=== PATIENT | male | born 1965 | race Asian ===

== ENCOUNTER → 2021-01-05 08:49 | Outpatient (BNVA) | payer BC, SELFPAY | PROVIDERS: PCP Internal Medicine; Visit Provider Urology | DX: N40.1 Benign prostatic hyperplasia with lower urinary tract symptoms (principal); R97.20 Elevated prostate specific antigen [PSA] | CPT/HCPCS: 51798 ==

== ENCOUNTER 2022-01-14 10:59 | Outpatient (REF) | payer OTHER, SELFPAY ==
[2022-01-14 14:30] LABS: Prostate Specific Antigen 2.87 ng/mL (<0.05-4.0)
== END 2022-01-14 11:00 | disposition home or self-care (01) ==
LOC: HO.10HDL 10:59
PROVIDERS: Visit Provider Urology
DX: Z12.5 Encounter for screening for malignant neoplasm of prostate (principal); N13.8 Other obstructive and reflux uropathy; N40.1 Benign prostatic hyperplasia with lower urinary tract symptoms; R97.20 Elevated prostate specific antigen [PSA]
CPT/HCPCS: 36415; 84153

== ENCOUNTER 2023-05-06 09:05 | Outpatient (AMB) | payer OTHER, SELFPAY ==
--- NOTE | 2023-05-06 09:22 | MHC.OFFVIS ---
Intake Intake Visit Reasons: 1Y PSA(set) Intake Note: Patient presents today for a 1 year follow-up on BPH/PSA: Meds- None Allergies to Antibiotic- No Known Allergies Blood Thinner- None PVR- 11 mL Finisher Cold Rolling Required: No Accompanied by: Self / Same As Patient Allergies lisinopril Allergy (Unknown, Verified 05/06/23 09:26) Unknown Medication List - Last Reconciled 05/06/23 by Sunil Henry MD amlodipine 5 mg PO DAILY atenolol 25 mg PO DAILY finasteride 5 mg PO DAILY 90 days losartan 100 mg PO DAILY HPI HPI Comments History of Present Illness Details Cesar FLETCHER is a very pleasant Chinese male. He is a patient of Dr Cruz. He is seen for the following urologic conditions. - elevated PSA - BPH PSA well controlled 2.5 Good voiding parameters with effective storage, strong stream, good emptying Six month follow-up PSA Elevated PSA/Abnormal LEONCIO: He presents for further evaluation of elevated PSA - on finasteride Current management is 07/13 , medication with 5AR. Laboratory investigations include a total PSA evaluation 05/13 5.8 - 06/16 2.5, 01/16 2.9, 02/16 2.5 Imaging investigations include a transrectal ultrasound Yes Date 06/2017 Prostate Volume 50 Indiviudalized Prostate Cancer Risk Calculator 5-10% high risk, , Discussed use of 5AR to help differentiate prostate cancer from benign disease. He would like to try this and understands the small risk associated with a delay in diagnosis. A TRUS biopsy has been performed and is negative 07/13 PSA at biopsy 5.8 Symptoms include 01/12 , weak stream, and are stable. Overall symptoms are mild. Therapeutic plan will be continued surveillance - 5AR [facility] Medical History Allergic rhinitis Borderline diabetes Poor urinary stream Surgical History History of surgery Family History (Updated 05/06/23 @ 09:26 by YODIT Brenner) Father No problems noted. Mother No problems noted. Social History (Updated 05/06/23 @ 09:26 by YODIT Brenner) Alcohol intake: current Alcohol intake frequency: does not drink Patient Tobacco Use Status: Never used Tobacco Review of Systems Const Denies chills and Denies fever(s) Card Reports no additional complaints and Denies syncope Resp Denies cough GI Denies abdominal pain and Denies heartburn Reports as per HPI and Denies change in libido Neuro Denies syncope Psych Denies change in libido Endo Denies change in libido Physical Exam Const General: cooperative, healthy appearing, comfortable and no acute distress Orientation/consciousness: patient oriented x3 HEENT Face and sinus: Yes normal facial exam Mouth: moist mucous membranes Neck Neck: Yes normal visual inspection, Yes full ROM and Yes trachea midline Chest Chest palpation & inspection: normal inspection of the chest Resp Effort & Inspection: normal respiratory effort, able to speak in complete sentences and no respiratory distress GI Inspection: Yes normal to inspection Back/Spine/Pelvis Cervical Spine: normal cervical lordosis Thoracic/Lumbar Spine: thoracic and lumbar spine normal to inspection Skin General skin exam: no rashes or lesions noted Neuro General: patient oriented x3, gait normal, tone normal and moves all extremities Extrem General: Yes normal to inspection and Yes capillary refill normal Results AMB Urinalysis, Automated UA Leukoctes 0 Autumn/uL Last Edit by YODIT Brenner on 05/06/23 09:31 UA Nitrite Negative Last Edit by YODIT Brenner on 05/06/23 09:31 UA Urobilinogen 0.2 mg/dL Last Edit by YODIT Brenner on 05/06/23 09:31 UA Protein 0 mg/dL Last Edit by YODIT Brenner on 05/06/23 09:31 UA pH 5.5 Last Edit by YODIT Brenner on 05/06/23 09:31 UA Blood 0 Matt/uL Last Edit by YODIT Brenner on 05/06/23 09:31 UA Specific [place] 1.030 Last Edit by YODIT Brenner on 05/06/23 09:31 UA Ketone Positive Last Edit by YODIT Brenner on 05/06/23 09:31 UA Bilirubin 0 mg/dL Last Edit by YODIT Brenner on 05/06/23 09:31 UA Glucose 0 mg/dL Last Edit by YODIT Brenner on 05/06/23 09:31 Results Reviewed Results Reviewed: Laboratory Last Values Urine pH (Auto) 5.5 05/06/23 09:25 Specific [place] (Auto) 1.030 05/06/23 09:25 Urine Protein (Auto) 0 mg/dL 05/06/23 09:25 Glucose (UA)(Auto) 0 mg/dL 05/06/23 09:25 Urine Ketones (Auto) Positive 05/06/23 09:25 Urine Blood (Auto) 0 Matt/uL 05/06/23 09:25 Urine Nitrite (Auto) Negative 05/06/23 09:25 Urine Bilirubin (Auto) 0 mg/dL 05/06/23 09:25 Urine Urobilinogen (Auto) 0.2 mg/dL 05/06/23 09:25 Leukocyte Esterase (Auto) 0 Autumn/uL 05/06/23 09:25 Assessment & Plan Assessment & Plan (1) Elevated PSA: Code(s): R97.20 - Elevated prostate specific antigen [PSA] (2) Benign prostatic hyperplasia with lower urinary tract symptoms: Code(s): N40.1 - Benign prostatic hyperplasia with lower urinary tract symptoms Plan 6 month follow-up PSA Orders: Orders AMB Post Void Residual by ultrasound Today N39.8 - Other specified disorders of urinary system Prostate Specific Antigen 6 Months R97.20 - Elevated prostate specific antigen [PSA] AMB Urinalysis Automated Today Z13.9 - Encounter for screening, unspecified Patient Instructions: Imaging studies, laboratory and physical exam results were discussed and reviewed in detail. No major barriers to patient understanding were identified. An opportunity to ask questions regarding the treatment plan was provided. All questions were answered. The patient expressed understanding and agreement with the above treatment plan. The patient is aware they should contact our office by phone for worsening of their current condition or the appearance of new urologic symptoms. Compliance is encouraged with any medications and followup testing that is ordered. It is a privilege to participate in the urologic care of your patient. If you have any questions or concerns regarding treatment for the above conditions, or other urologic issues, please do not hesitate to contact me. The office telephone contact is [phone]. This note is constructed using voice recognition software. While every effort has been made to ensure accuracy vascular technician errors may have been included. Yours sincerely, Dr Sunil Henry MD, [facility] - Urology Providers of Expert, Compassionate Care for the Genitourinary System Coding Level of Care Code Est Pt Level 4 (75792) Diagnoses Elevated PSA R97.20 Benign prostatic hyperplasia with lower urinary tract symptoms N40.1
== END 2023-05-06 10:07 | disposition home or self-care (01) ==
PROVIDERS: PCP Internal Medicine; Visit Provider Urology
DX: R97.20 Elevated prostate specific antigen [PSA] (principal); N40.1 Benign prostatic hyperplasia with lower urinary tract symptoms; Z13.9 Encounter for screening, unspecified
CPT/HCPCS: 99213

== ENCOUNTER → 2023-05-06 09:05 | Outpatient (BNVA) | payer OTHER, SELFPAY | PROVIDERS: Visit Provider Urology | DX: R97.20 Elevated prostate specific antigen [PSA] (principal); N40.0 Benign prostatic hyperplasia without lower urinary tract symptoms | CPT/HCPCS: 51798; 81003 ==

== ENCOUNTER 2023-11-05 08:33 | Outpatient (AMB) | payer OTHER, SELFPAY ==
--- NOTE | 2023-11-05 08:34 | MHC.OFFVIS ---
Intake Intake Visit Reasons: 6M PSA(set)Vm confirm Intake Note: Patient presents today for a telehealth follow up on: PSA Meds- Finasteride Allergies to Antibiotic- No Known Allergies Blood Thinner- None Panel Sewer Required: No Allergies lisinopril Allergy (Unknown, Verified 11/05/23 08:35) Unknown Medication List - Last Reconciled 11/05/23 by Sunil Henry MD amlodipine 5 mg PO DAILY atenolol 25 mg PO DAILY finasteride 5 mg PO DAILY 90 days losartan 100 mg PO DAILY HPI HPI Comments History of Present Illness Details Cesar FLETCHER is a very pleasant [place] male. He is a patient of Dr Cruz. He is seen for the following urologic conditions. - elevated PSA - BPH Telemedicine Evaluation 15 min Consultation [employer] Hector Video attempted Slight PSA rise to 2.9 Good voiding parameters with effective storage, strong stream, good emptying, minimal nocturia Six month follow-up PSA Elevated PSA/Abnormal LEONCIO: He presents for further evaluation of elevated PSA - on finasteride Current management is 07/13 , medication with 5AR. Laboratory investigations include a total PSA evaluation 05/13 5.8 - 06/16 2.5, 01/16 2.9, 02/16 2.5, 3.24 2.9 Imaging investigations include a transrectal ultrasound Yes Date 06/2017 Prostate Volume 50 Indiviudalized Prostate Cancer Risk Calculator 5-10% high risk, , Discussed use of 5AR to help differentiate prostate cancer from benign disease. He would like to try this and understands the small risk associated with a delay in diagnosis. A TRUS biopsy has been performed and is negative 07/13 PSA at biopsy 5.8 Symptoms include 01/12 , weak stream, and are stable. Overall symptoms are mild. Therapeutic plan will be continued surveillance - 5AR [facility] Medical History Allergic rhinitis Borderline diabetes Poor urinary stream Benign prostatic hyperplasia with lower urinary tract symptoms Elevated PSA Surgical History History of surgery Family History Father No problems noted. Mother No problems noted. Social History Alcohol intake: current Alcohol intake frequency: does not drink Patient Tobacco Use Status: Never used Tobacco Review of Systems Const All systems reviewed & are unremarkable except as noted in HPI and below Reports no additional complaints Resp Reports no additional complaints GI Reports no additional complaints Reports as per HPI Musc Reports no additional complaints Physical Exam Telemedicine evaluation Appropriate responses Regular breathing rate and rhythm HEENT Head: Yes normal to inspection Ears: hearing grossly normal bilaterally Eyes General: appearance normal, both eyes and all related structures Neck Neck: Yes normal visual inspection Chest Chest palpation & inspection: normal inspection of the chest Resp Effort & Inspection: normal respiratory effort and able to speak in complete sentences Assessment & Plan Assessment & Plan (1) Benign prostatic hyperplasia with lower urinary tract symptoms: Code(s): N40.1 - Benign prostatic hyperplasia with lower urinary tract symptoms (2) Elevated PSA: Code(s): R97.20 - Elevated prostate specific antigen [PSA] Plan Continue PSA follow-up Orders: Orders Prostate Specific Antigen 6 Months R97.20 - Elevated prostate specific antigen [PSA] Patient Instructions: Imaging studies, laboratory and physical exam results were discussed and reviewed in detail. No major barriers to patient understanding were identified. An opportunity to ask questions regarding the treatment plan was provided. All questions were answered. The patient expressed understanding and agreement with the above treatment plan. The patient is aware they should contact our office by phone for worsening of their current condition or the appearance of new urologic symptoms. Compliance is encouraged with any medications and followup testing that is ordered. It is a privilege to participate in the urologic care of your patient. If you have any questions or concerns regarding treatment for the above conditions, or other urologic issues, please do not hesitate to contact me. The office telephone contact is [phone]. This note is constructed using voice recognition software. While every effort has been made to ensure accuracy special education inclusion teacher errors may have been included. Yours sincerely, Dr Sunil Henry MD, [facility] - Urology Providers of Expert, Compassionate Care for the Genitourinary System Telehealth Telehealth Location of provider rendering services: practice address Location of patient: address on file Patient Identification confirmed using: Name, : Yes Telehealth method: video Patient verbally consented to treatment: Yes Patient verbally consented to billing insurance company: Yes Patient informed of any privacy concerns related to visit: Yes Coding Level of Care Code Tele Est Pt Level 3 (13918) Diagnoses Benign prostatic hyperplasia with lower urinary tract symptoms N40.1 Elevated PSA R97.20
== END 2023-11-05 09:32 | disposition home or self-care (01) ==
LOC: HO.HUSH 08:33
PROVIDERS: PCP Internal Medicine; Visit Provider Urology
DX: N40.1 Benign prostatic hyperplasia with lower urinary tract symptoms (principal); R97.20 Elevated prostate specific antigen [PSA]
CPT/HCPCS: 99213

== ENCOUNTER → 2023-11-05 08:33 | Outpatient (BNVA) | payer OTHER, SELFPAY | PROVIDERS: PCP Internal Medicine; Visit Provider Urology ==

== ENCOUNTER 2024-05-05 08:33 | Outpatient (AMB) | payer OTHER, SELFPAY ==
--- NOTE | 2024-05-05 08:36 | MHC.OFFVIS ---
Intake Visit Reasons: 6M PSA(set) Intake Note: Patient is Present for Follow Up PSA Urology Medication: Finasteride Antibiotic Allergies: None Blood Thinners: None Recent PSA: 04/28/2024 PSA: 2.9 Patient states that he no current issues with Voiding Production Metal Sprayer Required: No Accompanied by: Self / Same As Patient Allergies lisinopril Allergy (Unknown, Verified 05/05/24 08:45) Unknown HPI Comments Details: Cesar FLETCHER is a very pleasant French male. He is a patient of Dr Cruz. He is seen for the following urologic conditions. - elevated PSA - BPH PSA remains stable 2.9 Good voiding parameters with effective storage, strong stream, good emptying, minimal nocturia Twelve month follow-up Elevated PSA/Abnormal LEONCIO: He presents for further evaluation of elevated PSA - on finasteride Current management is 07/13 , medication with 5AR. Laboratory investigations include a total PSA evaluation 05/13 5.8 - 06/16 2.5, 01/16 2.9, 02/16 2.5, 3.24, 05/20 2.9 Imaging investigations include a transrectal ultrasound Yes Date 06/2017 Prostate Volume 50 Indiviudalized Prostate Cancer Risk Calculator 5-10% high risk, , Discussed use of 5AR to help differentiate prostate cancer from benign disease. He would like to try this and understands the small risk associated with a delay in diagnosis. A TRUS biopsy has been performed and is negative 07/13 PSA at biopsy 5.8 Symptoms include 6/18 , weak stream, and are stable. Overall symptoms are mild. Therapeutic plan will be continued surveillance - 5AR [facility] Medical History Allergic rhinitis Borderline diabetes Poor urinary stream Benign prostatic hyperplasia with lower urinary tract symptoms Elevated PSA Surgical History History of surgery Family History Father No problems noted. Mother No problems noted. Social History Alcohol intake: current Alcohol intake frequency: does not drink Patient Tobacco Use Status: Never used Tobacco Review of Systems Const Denies chills and Denies fever(s) Card Reports no additional complaints and Denies syncope Resp Denies cough GI Denies abdominal pain and Denies heartburn Reports as per HPI and Denies change in libido Neuro Denies syncope Psych Denies change in libido Endo Denies change in libido Physical Exam Const General: cooperative, healthy appearing, comfortable and no acute distress Orientation/consciousness: patient oriented x3 HEENT Face and sinus: Yes normal facial exam Mouth: moist mucous membranes Neck Neck: Yes normal visual inspection, Yes full ROM and Yes trachea midline Chest Chest palpation & inspection: normal inspection of the chest Resp Effort & Inspection: normal respiratory effort, able to speak in complete sentences and no respiratory distress GI Inspection: Yes normal to inspection Back/Spine/Pelvis Cervical Spine: normal cervical lordosis Thoracic/Lumbar Spine: thoracic and lumbar spine normal to inspection Skin General skin exam: no rashes or lesions noted Neuro General: patient oriented x3, gait normal, tone normal and moves all extremities Extrem General: Yes normal to inspection and Yes capillary refill normal Assessment & Plan Assessment & Plan (1) Benign prostatic hyperplasia with lower urinary tract symptoms: Code(s): N40.1 - Benign prostatic hyperplasia with lower urinary tract symptoms Category: Medical (2) Elevated PSA: Code(s): R97.20 - Elevated prostate specific antigen [PSA] Category: Medical Plan Twelve month follow-up PSA Orders: Orders Prostate Specific Antigen 364 Days N40.1 - Benign prostatic hyperplasia with lower urinary tract symptoms Patient Instructions: Imaging studies, laboratory and physical exam results were discussed and reviewed in detail. No major barriers to patient understanding were identified. An opportunity to ask questions regarding the treatment plan was provided. All questions were answered. The patient expressed understanding and agreement with the above treatment plan. The patient is aware they should contact our office by phone for worsening of their current condition or the appearance of new urologic symptoms. Compliance is encouraged with any medications and followup testing that is ordered. It is a privilege to participate in the urologic care of your patient. If you have any questions or concerns regarding treatment for the above conditions, or other urologic issues, please do not hesitate to contact me. The office telephone contact is [phone]. This note is constructed using voice recognition software. While every effort has been made to ensure accuracy strategic solutions consultant errors may have been included. Yours sincerely, Dr Sunil Henry MD, [facility] - Urology Providers of Expert, Compassionate Care for the Genitourinary System Coding Level of Care Code Est Pt Level 3 (35492) Diagnoses Benign prostatic hyperplasia with lower urinary tract symptoms N40.1 Elevated PSA R97.20
== END 2024-05-05 09:03 | disposition home or self-care (01) ==
PROVIDERS: PCP Internal Medicine; Visit Provider Urology
DX: N40.1 Benign prostatic hyperplasia with lower urinary tract symptoms (principal); R97.20 Elevated prostate specific antigen [PSA]
CPT/HCPCS: 99213

== ENCOUNTER → 2024-05-05 08:33 | Outpatient (BNVA) | payer OTHER, SELFPAY | PROVIDERS: PCP Internal Medicine; Visit Provider Urology ==

== ENCOUNTER 2025-04-25 08:33 | Outpatient (REF) | payer BC, SELFPAY ==
--- OUTSIDE RECORDS SUMMARY | 2025-04-25 09:01 | XMS_ITS | Patient Health Record ---
Author Organization [facility] Address [address] [place] [address] Care Team Providers Care Unit Leader Name Role Phone ANABEL CHACON Primary Care Provider Allergies No Known Allergies Reason For Referral No Information Medications Medication SIG (Take, Route, Frequency, Duration) Notes Start Date End Date Status amLODIPine Besylate 5 MG 1 tablet Orally Once a day; Duration: 90 days Active Losartan Potassium 100 MG 1 tablet Orall y Once a day; Duration: 90 days Active Atenolol 25 MG 1 tablet Orally Once a day; Duration: 90 days Active Triamcinolone Acetonide 0.025 % 1 application Externally Once a day; Duration: 30 days Active Finasteride 5 MG 1 tablet Orally Once a day Active Immunizations Vaccine Route Administration Date Status Comme nts COVID Moderna Unknown 10/28/2020 Administered COVID Moderna Unknown 11/25/2020 Administered COVID Moderna Unknown 06/13/2021 Administered COVID-19 Moderna Unknown 08/27/2022 Administered Flu Shot Unknown 06/17/2023 Administered Tdap Unknown 09/22/2021 Administered Social History Tobacco Use: Social History Observation Description Date Details (start date - stop date) Current Smoker NA - NA Tobacco Use/Smoking Question Answer Notes Are you a current smoker How often do you smoke cigarettes? some days, bu t not every day How many cigarettes a day do you smoke? 5 or les s Are you interested in quitting? Thinking about q uitting Alcohol Screen (Audit-C) Question Answer Notes Did you have a drink contain ing alcohol in the past year? Yes How often did you have a dri nk containing alcohol in the past year? 4 or more times a week (4 points) How many drinks did you have on a typical day when you were drinking in the past year? 1 or 2 drinks (0 point) How often did you have 6 or more drinks on one occasion in the past year? Never (0 point) Points 4 Interpretation Positive Problems Problem Type SNOMED Code ICD Code Onset Dates Problem Status W/U Status Risk Notes Problem Alcohol dependence (91067235) Alcohol dependence, uncomplicated (F10.20) Active confirmed Problem Essential hypertension (39458237) Essential (primary) hypertension (I10) Active confirmed Problem Lower urinary tract symptoms due to benign prostatic hypertrophy ([id number]) Benign prostatic hyperplasia with lower urinary tract symptoms (N40.1) Active confirmed Plan Of Treatment Future Test Test Name Order Date COMPREHENSIVE METABOLIC PANEL 06/20/2023 LIPID PANEL 06/20/2023 MICROALBUMIN, URINE 06/20/2023 Insurance Providers Payer Name Payer Address Payer Phone Subscriber Number Group Number Insured Name Patient Relationship to Insured Coverage Start Date Coverage End Date Kerwin [address]EE[address] [place] [phone] [id number] Cesar Dwyer Self - patient is the insured Medical (General) History Medical History History ICD Code hypertension, benign BPH Eczema
--- OUTSIDE RECORDS SUMMARY | 2025-04-25 09:01 | XMS_ITS | Clinical Summary ---
Author Organization [facility] [address] [place] [address] [place] [phone] Phone Care Team Providers Care Database Operator Name Role Phone Mansi Caceres MD Primary Care Provider [phone] Allergies Active Allergy Reactions Criticality Noted Date Comments Lisinopril Other 01/02/2010 dizziness Medications finasteride (PROSCAR) 5 mg tablet Take 1 tablet by mouth daily. 1 Active triamcinolone (KENALOG) 0.025 % cream Apply sparingly to affected area twice daily. 3 Active amLODIPine (NORVASC) 5 mg tablet TAKE 1 TABLET BY MOUTH EVERY DAY 90 tablet 1 5 Active losartan (COZAAR) 100 mg tablet TAKE 1 TABLET BY MOUTH EVERY DAY 90 tablet 1 5 Active atenoloL (TENORMIN) 25 mg tablet TAKE 1 TABLET BY MOUTH EVERY DAY 90 tablet 1 5 Active Active Problems Problem Noted Date Diagnosed Date Benign prostatic hyperplasia with nocturia 12/15 Erectile dysfunction 12/11/2015 Chronic hepatitis B virus in fection ([facility] V24, [facility] V28) 04/22/2013 Overview (06/01/2024): Surface antigen positive, E antibody positive as of 2012. 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 Allergic rhinitis 02/23/2008 Essential hypertension, benign 12/26/2005 Immunizations Immunization Administration Dates Next Due H1N1 Inj Preservative Free 07/04/2009 Influenza Quadravalent, MDCK , 0.5ml, preservative free (Flucelvax) 6mo and older 04/08/2024,06/17/2023,07/09/2022,2020 Influenza Quadravalent, MDCK , 0.5ml, with preservative (Flucelvax) 6mo and older 05/09/2017 Influenza trivalent, 0.5mL, preservative free (Fluarix; FluLaval; Fluzone) ages 6mo and older (Afluria) 3 years and older 04/10/2015,05/31/2013,04/22/2011,2009,05/01/2009,07/02/2006 Influenza, Unspecified 03/28/2020,04/29/2018 Moderna (age 6mo & older) Bi valent, COVID-19, 0.5 mL or 0.25 mL dosage 08/27/2022 Tdap Tetanus diptheria acell ular pertussis (Boostrix; Adacel) 7yo and older 09/22/2021,05/04/2010 Surgical History Surgery Date Site/Laterality Comments COLONOSCOPY W/ BIOPSIES 08/10/2014 PROCEDURE: [place] COLONOSCOPY W/BIOPSY SINGLE/MULTIPLE; COMMENT: 5 mm rectal polyp: hyperplastic. Medical History Medical History Date Comments Heart disease, unspecified DX:He art disease, unspecified Unspecified essential hypertension DX:Unspecified essential hypertension Borderline glaucoma with ocu lar hypertension 05/14/2011 DX:Borderline glaucoma with ocular hypertension Family History Medical History Relation Name Comments No Known Problems Aunt No Known Problems Brother No Known Problems Father No Known Problems Maternal Grandfather No Known Problems Maternal Grandmother Cataracts Mother No Known Problems Other No Known Problems Paternal Grandfather No Known Problems Paternal Grandmother No Known Problems Sister No Known Problems Uncle Blindness Neg Hx Colon cancer Neg Hx Glaucoma Neg Hx Macular degeneration Neg Hx Strabismus Neg Hx Relation Name Status Comments Aunt Brother Father stroke 10 years ago, htn Maternal Grandfather Maternal Grandmother Mother dm Other Paternal Grandfather Paternal Grandmother Sister Uncle Social History Tobacco Use Types Packs/Day Years Used Date Smoking Tobacco: Some Days Cigarettes Last attempted to quit: 07/28/2001 Smokeless Tobacco: Never Tobacco Cessation:Ready to Q uit: Not Asked; Counseling Given: Not Answered Alcohol Use Standard Drinks/Week Comments Yes 0 (1 standard drink = 0.6 oz pur e alcohol) Sex and Gender Information Value Date Recorded Sex Assigned at Not on file Legal Sex Male 1:41 AM EST Gender Identity Not on file Sexual Orientation Not on file Obstetrics History Last Filed Vital Signs Vital Sign Reading Time Taken Comments Blood Pressure 134/76 08/12/2024 8:12 AM EST Pulse 60 08/12/2024 8:12 AM EST Temperature 36.6 C (97.9 F) 08/12/2024 8:12 AM EST Respiratory Rate 16 08/12/2024 8:12 AM EST Oxygen Saturation - - Inhaled Oxygen Concentration - - Weight 65.3 kg (144 lb) 08/12/2024 8:12 AM EST Height 162.6 cm (5' 4 ) 04/08/2024 9:36 AM EDT Body Mass Index 24.72 04/08/2024 9:36 AM EDT Plan of Treatment Upcoming Encounters Date Type Department Care Team (Late st Contact Info) Description 08/10/2025 11:00 AM EST Office Visit Adult Medicine [address] [address] Mansi Caceres MD [address] [place] [phone] Health Maintenance Due Date Last Done Comments Pneumococcal Vaccine: 50+ Years (1 of 2 - PCV) 10/26/1982 Zoster Vaccines (1 of 2) 10/26/2013 HIV Screening 07/06/2022 Social Influencers of Health Screening 07/06/2022 Hypertension/CHF/CAD Annual BMP Blood Test 01/22/2024 01/21/2023 Depression Screening 07/28/2024 Colorectal Cancer Screening: Colonoscopy 08/10/2024 08/10/2014 COVID-19 Vaccine ( season) 2025 08/27/2022, 06/13/2021, 11/25/2020, Additional history exists Influenza Vaccine (#1) 2025 , 06/17/2023, 07/09/2022, Additional history exists Cholesterol Screening (Lipid Panel) 01/22/2028 01/21/2023 DTaP,Tdap,and Td Vaccines (3 - Td or Tdap) 09/22/2031 09/22/2021, 05/04/2010 RSV Immunization Adult Patients (1 - 1-dose 75+ series) 10/26/2038 Hepatitis C Screening Completed 01/21/2023 HIB Vaccines Aged Out No longer eligi ble based on patient's age to complete this topic HPV Vaccines Aged Out No longer eligi ble based on patient's age to complete this topic Hepatitis A Vaccines Aged Out No long er eligible based on patient's age to complete this topic Hepatitis B Vaccines Aged Out No long er eligible based on patient's age to complete this topic IPV Vaccines Aged Out No longer eligi ble based on patient's age to complete this topic MMR Vaccines Aged Out No longer eligi ble based on patient's age to complete this topic Meningococcal ACWY Vaccine Aged Out N o longer eligible based on patient's age to complete this topic Meningococcal B Vaccine Aged Out No l onger eligible based on patient's age to complete this topic RSV Immunization Patients Under 20 months Aged Out No longer eligible based on patient's age to complete this topic Varicella Vaccines Aged Out No longer eligible based on patient's age to complete this topic Procedures Procedure Name Priority Date/Time Associated Diagnosis Comments HEPATITIS C SCREENING Routine 01/21/2023 ANNUAL BMP BLOOD TEST Routine 01/21/2023 LIPID PANEL Routine 01/21/2023 COLONOSCOPY Routine 08/10/2014 from Last 3 Months or Most Recently Relevant to Health Maintenance Results * Annual BMP Blood Test (01/21/2023) Pathologist [facility] Annual BMP Blood Test Abstracted us Historical Provider HEALTH MAINTENANCE Final Result * Hepatitis C Screening (01/21/2023) Pathologist [facility] Hepatitis C Screening Abstracted us Historical Provider HEALTH MAINTENANCE Final Result * (ABNORMAL) Lipid panel (01/21/2023) [facility] LDL/HDL Ratio 3 0 - 4 Triglycerides 93 0 - 150 mg/dL Cholesterol 199 0 - 200 mg/dL HDL 80 >=40 mg/dL LDL Cholesterol 101(A) 0 - 100 mg/dL Blood Venous blood specimen / Unknown Historical Provider LAB BLOOD ORDERABLES Jahaira l Result * Colonoscopy (08/10/2014) Colonoscopy No interpretation , Abstracted Anatomical Region Laterality Modality Other Historical Provider HEALTH MAINTENANCE Final Result from Last 3 Months or Most Recently Relevant to Health Maintenance Insurance [facility] Care Teams Database Operator Relationship Specialty Start Date End Date Mansi Caceres MD [address] [place] [phone] PCP - General Internal Medicine 03/12/22
--- OUTSIDE RECORDS SUMMARY | 2025-04-25 09:01 | XMS_ITS ---
Author Name [facility] Organization Unknown Care Team Organization Name Specialty Phone Email Start Date End Da te [facility] Mansi Caceres Primary Care 10/02/2022 024 [facility] Termed, PROVIDER Primary Care 06/04/202202/25
[2025-04-25 09:54] LABS: Prostate Specific Antigen 3.97 ng/mL (<0.05-4.0)
== END 2025-04-25 08:34 | disposition home or self-care (01) ==
LOC: HO.LAB 08:33
PROVIDERS: PCP Internal Medicine; Visit Provider Urology
DX: Z12.5 Encounter for screening for malignant neoplasm of prostate (principal); R97.20 Elevated prostate specific antigen [PSA]
CPT/HCPCS: 36415; 84153

== ENCOUNTER 2025-05-05 08:43 | Outpatient (AMB) | payer OTHER, SELFPAY ==
--- NOTE | 2025-05-05 08:47 | A.OFFVIS_ITS ---
Intake Visit Reasons: 1y/PSA Intake Note: Patient is Present for 1 yr Follow Up PSA Urology Medication: Finasteride Antibiotic Allergies: None Blood Thinners: None PVR: 0mls Recent PSA: 04/25/25 PSA: 3.97 Instrumentation Technician Required: No Accompanied by: Self / Same As Patient Allergies lisinopril Allergy (Unknown, Verified 05/05/25 08:47) Unknown HPI Comments Details: Cesar FLETCHER is a very pleasant [place] male. He is a patient of Dr Cruz. He is seen for the following urologic conditions. - elevated PSA - BPH PSA rise to 3.9 Prior negative biopsy Recommend prostate MRI Elevated PSA/Abnormal LEONCIO: He presents for further evaluation of elevated PSA - on finasteride Current management is 07/13 , medication with 5AR. Laboratory investigations include a total PSA evaluation 05/13 5.8 - 06/16 2.5, 01/16 2.9, 02/16 2.5, 3.24, 05/20 2.9, 04/21 4.0 on finasteride Imaging investigations include a transrectal ultrasound Yes Date 06/2017 Prostate Volume 50 Indiviudalized Prostate Cancer Risk Calculator 5-10% high risk, , Discussed use of 5AR to help differentiate prostate cancer from benign disease. He would like to try this and understands the small risk associated with a delay in diagnosis. A TRUS biopsy has been performed and is negative 07/13 PSA at biopsy 5.8 Symptoms include 6/18 , weak stream, and are stable. Overall symptoms are mild. Therapeutic plan will be continued surveillance - 5AR [facility] Medical History Allergic rhinitis Borderline diabetes Poor urinary stream Benign prostatic hyperplasia with lower urinary tract symptoms Elevated PSA Surgical History History of surgery Family History Father No problems noted. Mother No problems noted. Social History Alcohol intake: current Alcohol intake frequency: does not drink Patient Tobacco Use Status: Never used Tobacco Review of Systems Const Denies chills and Denies fever(s) Card Reports no additional complaints and Denies syncope Resp Denies cough GI Denies abdominal pain and Denies heartburn Reports as per HPI and Denies change in libido Neuro Denies syncope Psych Denies change in libido Endo Denies change in libido Physical Exam Const General: cooperative, healthy appearing, comfortable and no acute distress Orientation/consciousness: patient oriented x3 HEENT Face and sinus: Yes normal facial exam Mouth: moist mucous membranes Neck Neck: Yes normal visual inspection, Yes full ROM and Yes trachea midline Chest Chest palpation & inspection: normal inspection of the chest Resp Effort & Inspection: normal respiratory effort, able to speak in complete sentences and no respiratory distress GI Inspection: Yes normal to inspection Back/Spine/Pelvis Cervical Spine: normal cervical lordosis Thoracic/Lumbar Spine: thoracic and lumbar spine normal to inspection Skin General skin exam: no rashes or lesions noted Neuro General: patient oriented x3, gait normal, tone normal and moves all extremities Extrem General: Yes normal to inspection and Yes capillary refill normal Assessment & Plan Assessment & Plan (1) Elevated PSA: Code(s): R97.20 - Elevated prostate specific antigen [PSA] Category: Medical (2) Benign prostatic hyperplasia with lower urinary tract symptoms: Code(s): N40.1 - Benign prostatic hyperplasia with lower urinary tract symptoms Category: Medical Plan Prostate MRI Orders: Orders MR Prostate wo/w con Today R97.20 - Elevated prostate specific antigen [PSA] Patient Instructions: This note is constructed using voice recognition software. While every effort has been made to ensure accuracy pickle water pump operator errors may have been included. Imaging studies, laboratory and physical exam results were discussed and reviewed in detail. No major barriers to patient understanding were identified. An opportunity to ask questions regarding the treatment plan was provided. All questions were answered. The patient expressed understanding and agreement with the above treatment plan. The patient is aware they should contact our office by phone for worsening of their current condition or the appearance of new urologic symptoms. Compliance is encouraged with any medications and followup testing that is ordered. It is a privilege to participate in the urologic care of your patient. If you have any questions or concerns regarding treatment for the above conditions, or other urologic issues, please do not hesitate to contact me. The office telephone contact is [phone]. Sincerely, Dr Sunil Henry MD, [facility] - Urology Compassionate Specialist Care for the Genitourinary System Coding Level of Care Code Est Pt Level 4 (21089) Complex EM visit Add On G2211 Diagnoses Elevated PSA R97.20 Benign prostatic hyperplasia with lower urinary tract symptoms N40.1
== END 2025-05-05 09:09 | disposition home or self-care (01) ==
LOC: HO.HUSH 08:43
PROVIDERS: PCP Internal Medicine; Visit Provider Urology
DX: R97.20 Elevated prostate specific antigen [PSA] (principal); N40.1 Benign prostatic hyperplasia with lower urinary tract symptoms
CPT/HCPCS: 99214

== ENCOUNTER → 2025-05-05 08:43 | Outpatient (BNVA) | payer OTHER, SELFPAY | PROVIDERS: PCP Internal Medicine; Visit Provider Urology | DX: R97.20 Elevated prostate specific antigen [PSA] (principal); N40.1 Benign prostatic hyperplasia with lower urinary tract symptoms | CPT/HCPCS: 51798; 81003 ==

== ENCOUNTER 2025-05-23 08:11 | Outpatient (REF) | payer BC, SELFPAY ==
--- OUTSIDE RECORDS SUMMARY | 2025-05-23 08:27 | XMS_ITS | Patient Health Record ---
Author Organization [facility] Address [address] [place] [address] Care Team Providers Care Grades 1 Through 5 Teacher Name Role Phone ANABEL CHACON Primary Care [...] W/U Status Risk Notes Problem Alcohol dependence (43774697) Alcohol dependence, uncomplicated (F10.20) Active confirmed Problem Essential hypertension (09847732) Essential (primary) hypertension (I10) Active confirmed Problem Lower urinary tract symptoms due to benign prostatic hypertrophy (03200630030701) Benign prostatic hyperplasia with lower urinary tract symptoms (N40.1) Active confirmed Plan Of Treatment Future Test Test Name Order Date COMPREHENSIVE METABOLIC PANEL 06/20/2023 LIPID PANEL 06/20/2023 MICROALBUMIN, URINE 06/20/2023 Insurance Providers Payer Name Payer Address Payer Phone Subscriber Number Group Number Insured Name Patient Relationship to Insured Coverage Start Date Coverage End Date Kerwin STEELE [address] [place] [phone] [id number] Cesar Dwyer Self - patient is the insured Medical (General) History Medical History History ICD Code hypertension, benign BPH Eczema
--- OUTSIDE RECORDS SUMMARY | 2025-05-23 08:27 | XMS_ITS | Clinical Summary ---
Author Organization [facility] [address] [place] [address] [place] [phone] Phone Care Team Providers Care Cart Pusher Name Role Phone Mansi Caceres MD Primary Care Provider [phone] Allergies Active Allergy Reactions Criticality Noted Date [...] 12/11/2015 Chronic hepatitis B virus in fection ([facility] V24, [facility] V28) 04/22/2013 Overview (06/01/2024): Surface antigen [...] Site/Laterality Comments COLONOSCOPY W/ BIOPSIES 08/10/2014 PROCEDURE: [place] COLONOSCOPY W/BIOPSY SINGLE/MULTIPLE; COMMENT: 5 mm rectal [...] 11:00 AM EST Office Visit Adult Medicine [address] [address] Mansi Caceres MD [address] [place] [phone] Health Maintenance Due Date Last Done Comments [...] Procedure Name Priority Date/Time Associated Diagnosis Comments EXTERNAL CLINICAL LAB 04/25/2025 HEPATITIS C SCREENING Routine 01/21/2023 ANNUAL BMP BLOOD TEST Routine 01/21/2023 LIPID PANEL Routine 01/21/2023 COLONOSCOPY Routine 08/10/2014 from Last 3 Months or Most Recently Relevant to Health Maintenance Results * External clinical lab (04/25/2025) Provider [facility] LAB BLOOD ORDERABLES Fin al Result * Annual BMP Blood Test (01/21/2023) Pathologist [facility] Annual BMP Blood Test Abstracted [facility] Provider HEALTH MAINTENANCE Final Result * Hepatitis C Screening (01/21/2023) Pathologist [facility] Hepatitis C Screening Abstracted Historical Provider HEALTH MAINTENANCE Final Result * (ABNORMAL) Lipid panel (01/21/2023) LDL/HDL Ratio 3 0 - 4 Triglycerides [...] Most Recently Relevant to Health Maintenance Insurance [facility] Care Teams Cart Pusher Relationship Specialty Start Date End Date Mansi Caceres MD [address] [place] [phone] PCP - General Internal Medicine 03/12/22
[2025-05-23 09:34] LABS: Prostate Specific Antigen 3.11 ng/mL (<0.05-4.0)
== END 2025-05-23 08:12 | disposition home or self-care (01) ==
LOC: HO.LAB 08:11
PROVIDERS: Visit Provider Urology
DX: N40.1 Benign prostatic hyperplasia with lower urinary tract symptoms (principal); Z12.5 Encounter for screening for malignant neoplasm of prostate
CPT/HCPCS: 36415; 84153

== ENCOUNTER → 2025-05-31 08:25 | Outpatient (BNV) | payer BC, SELFPAY | PROVIDERS: Visit Provider Radiology Diagnostic Radiology | DX: R97.20 Elevated prostate specific antigen [PSA] (principal) | CPT/HCPCS: 72197 ==

== ENCOUNTER 2025-05-31 08:34 | Outpatient (REF) | payer BC, SELFPAY ==
--- NOTE | ~2025-05-31 | MR_ITS ---
EXAMINATION: MR PROSTATE WITHOUT THEN WITH IV CONTRAST HISTORY: R97.20 - Elevated prostate specific antigen [PSA] TECHNIQUE: 1.5T body coil survey of the pelvis was performed. Phase array coil imaging of the prostate was performed in multiplanar high resolution axial, coronal, sagittal fast spin echo T2 and axial T1 weighted imaging sequences. Axial diffusion imaging at intermediate and high field performed with ADC mapping. Next, 7 mL Gadavist was given by intravenous infusion, and dynamic axial imaging performed. 3-D reconstructions and post-processing were not performed as no discrete lesion was identified. COMPARISON: There are no prior studies available for comparison. CLINICAL DATA: Most recent PSA: 3.11 ng/mL on 05/23/2025. PSA Density: 0.10 ng/mL squared Prostate Biopsy: Prior negative biopsy by report. FINDINGS: Prostate size: 4.2 x 4.3 x 3.2 cm. Calculated prostate volume is 30.1 mL. Hemorrhage: None. Transitional Zone: There is mild to moderate heterogeneous nodular hypertrophy of the transitional zone. Peripheral Zone: A few scattered linear T2 hypointense foci are seen in the peripheral zone which can be seen in the setting of prostatitis of scarring. No discrete focus of abnormal signal intensity is identified. There are no foci of restricted diffusion. Seminal Vesicles/Ejaculatory Ducts: Symmetric and normal in signal and caliber. Pelvic Lymph Nodes: No obturator or internal iliac lymph nodes meeting size criteria for adenopathy. Marrow Signal: Normal marrow signal and enhancement without focal lesion identified. MR/MR Prostate wo/w con IMPRESSION: No discrete focus of abnormal signal intensity is identified to suggest clinically significant prostate carcinoma. PI-RADS 2: Low (clinically significant cancer is unlikely to be present) PI-RADS Assessment Categories PI-RADS 1: Very low (clinically significant cancer is highly unlikely to be present) PI-RADS 2: Low (clinically significant cancer is unlikely to be present) PI-RADS 3: Intermediate (the presence of clinically significant cancer is equivocal) PI-RADS 4: High (clinically significant cancer is likely to be present) PI-RADS 5: Very high (clinically significant cancer is highly likely to be present) [employer]. MR Prostate Imaging Reporting and Data System version 2.1. [email or web address] Electronically signed by: Ibrahima Foreman MD 05/31/2025 10:09 AM EST
--- OUTSIDE RECORDS SUMMARY | 2025-05-31 08:58 | XMS_ITS | Patient Health Record ---
Author Organization [employer] [facility] Address [address] [place] [address] Care Team Providers Care Latrine Cleaner Name Role Phone ANABEL CHACON Primary Care Provider [phone] Allergies No Known Allergies Reason For Referral [...] W/U Status Risk Notes Problem Alcohol dependence (29293301) Alcohol dependence, uncomplicated (F10.20) Active confirmed Problem Essential hypertension (39941447) Essential (primary) hypertension (I10) Active confirmed Problem Lower urinary tract symptoms due to benign prostatic hypertrophy (56383845132472) Benign prostatic hyperplasia with lower urinary tract symptoms (N40.1) Active confirmed Plan Of Treatment Future Test Test Name Order Date COMPREHENSIVE METABOLIC PANEL 06/20/2023 LIPID PANEL 06/20/2023 MICROALBUMIN, URINE 06/20/2023 Insurance Providers Payer Name Payer Address Payer Phone Subscriber Number Group Number Insured Name Patient Relationship to Insured Coverage Start Date Coverage End Date Kerwin STEELE [address] [place] [phone] [id number] Cesar Dwyer Self - patient is the insured Medical (General) History Medical History History ICD Code hypertension, benign BPH Eczema
--- OUTSIDE RECORDS SUMMARY | 2025-05-31 08:58 | XMS_ITS | Clinical Summary ---
Author Organization [facility] [address] [place] [address] [place] [phone] Phone Care Team Providers Care Central Office Equipment Installer Name Role Phone Mansi Caceres MD Primary Care Provider [phone] Allergies Active Allergy Reactions Criticality Noted Date [...] 12/11/2015 Chronic hepatitis B virus in fection ([facility] V24, [facility] V28) 04/22/2013 Overview (06/01/2024): Surface antigen [...] Site/Laterality Comments COLONOSCOPY W/ BIOPSIES 08/10/2014 PROCEDURE: [place] COLONOSCOPY W/BIOPSY SINGLE/MULTIPLE; COMMENT: 5 mm rectal [...] 11:00 AM EST Office Visit Adult Medicine [address] [address] Mansi Caceres MD [address] [place] [phone] Health Maintenance Due Date Last Done Comments [...] * Annual BMP Blood Test (01/21/2023) [facility] Annual BMP Blood Test Abstracted [facility] Provider HEALTH MAINTENANCE Final Result * Hepatitis C Screening (01/21/2023) [facility]ologist [facility] Hepatitis C Screening Abstracted Historical Provider HEALTH [...] Most Recently Relevant to Health Maintenance Insurance [facility] Care Teams Central Office Equipment Installer Relationship Specialty Start Date End Date Mansi Caceres MD [address] [place] [phone] PCP - General Internal Medicine 03/12/22
== END 2025-05-31 08:35 | disposition home or self-care (01) ==
LOC: HO.MRI 08:34
PROVIDERS: Visit Provider Urology
DX: R97.20 Elevated prostate specific antigen [PSA] (principal)
CPT/HCPCS: 72197; 76377; A9585

== ENCOUNTER 2025-06-01 08:39 | Outpatient (AMB) | payer OTHER, SELFPAY ==
--- NOTE | 2025-06-01 08:54 | A.OFFVIS_ITS ---
Intake Visit Reasons: 4w/MRI Intake Note: Patient is present for MRI Follow up Urology Med: Finasteride Antibiotic Allergy: None Blood Thinner: None PVR: 0ml Managing Cognitive Engineer Required: No Accompanied by: Self / Same As Patient Allergies lisinopril Allergy (Unknown, Verified 06/01/25 08:56) Unknown HPI Comments Details: Cesar FLETCHER is a very pleasant [place] male. He is a patient of Dr Cruz. He is seen for the following urologic conditions. - elevated PSA - lower urinary tract symptoms PSA rise to 3.9 Prior negative biopsy Prostate MRI 05/21 - No discrete focus of abnormal signal intensity is identified to suggest clinically significant prostate carcinoma - printed copy provided Continue six-month follow-up with repeat PSA Elevated PSA/Abnormal LEONCIO: He presents for further evaluation of elevated PSA - on finasteride Current management is 07/13 , medication with 5AR. Laboratory investigations include a total PSA evaluation 05/13 5.8 - 06/16 2.5, 01/16 2.9, 02/16 2.5, 3.24, 05/20 2.9, 04/21 4.0 on finasteride Imaging investigations include a transrectal ultrasound Yes Date 06/2017 Prostate Volume 50 Indiviudalized Prostate Cancer Risk Calculator 5-10% high risk, , Discussed use of 5AR to help differentiate prostate cancer from benign disease. He would like to try this and understands the small risk associated with a delay in diagnosis. A TRUS biopsy has been performed and is negative 07/13 PSA at biopsy 5.8 Symptoms include 6/18 , weak stream, and are stable. Overall symptoms are mild. Therapeutic plan will be continued surveillance - [facility] Medical History Allergic rhinitis Borderline diabetes Poor urinary stream Benign prostatic hyperplasia with lower urinary tract symptoms Elevated PSA Surgical History History of surgery Family History Father No problems noted. Mother No problems noted. Social History Alcohol intake: current Alcohol intake frequency: does not drink Patient Tobacco Use Status: Never used Tobacco Review of Systems Const Denies chills and Denies fever(s) Card Reports no additional complaints and Denies syncope Resp Denies cough GI Denies abdominal pain and Denies heartburn Reports as per HPI and Denies change in libido Neuro Denies syncope Psych Denies change in libido Endo Denies change in libido Physical Exam Const General: cooperative, healthy appearing, comfortable and no acute distress Orientation/consciousness: patient oriented x3 HEENT Face and sinus: Yes normal facial exam Mouth: moist mucous membranes Neck Neck: Yes normal visual inspection, Yes full ROM and Yes trachea midline Chest Chest palpation & inspection: normal inspection of the chest Resp Effort & Inspection: normal respiratory effort, able to speak in complete sentences and no respiratory distress GI Inspection: Yes normal to inspection Back/Spine/Pelvis Cervical Spine: normal cervical lordosis Thoracic/Lumbar Spine: thoracic and lumbar spine normal to inspection Skin General skin exam: no rashes or lesions noted Neuro General: patient oriented x3, gait normal, tone normal and moves all extremities Extrem General: Yes normal to inspection and Yes capillary refill normal Office Procedures Post Void Residual Post Residual Void Post Void Residual (PVR): 0 [id number] Void Residual by ultrasound Assessment & Plan Assessment & Plan (1) Elevated PSA: Code(s): R97.20 - Elevated prostate specific antigen [PSA] Category: Medical (2) Benign prostatic hyperplasia with lower urinary tract symptoms: Code(s): N40.1 - Benign prostatic hyperplasia with lower urinary tract symptoms Category: Medical Plan Continue finasteride Friday, Friday, Friday Six-month follow-up repeat PSA Orders: Orders AMB Post Void Residual by ultrasound Today N40.1 - Benign prostatic hyperplasia with lower urinary tract symptoms PSA,Total (Free>4and<10) 6 Months R97.20 - Elevated prostate specific antigen [PSA] Patient Instructions: This note is constructed using voice recognition software. While every effort has been made to ensure accuracy fine hairer errors may have been included. Imaging studies, laboratory and physical exam results were discussed and reviewed in detail. No major barriers to patient understanding were identified. An opportunity to ask questions regarding the treatment plan was provided. All questions were answered. The patient expressed understanding and agreement with the above treatment plan. The patient is aware they should contact our office by phone for worsening of their current condition or the appearance of new urologic symptoms. Compliance is encouraged with any medications and followup testing that is ordered. It is a privilege to participate in the urologic care of your patient. If you have any questions or concerns regarding treatment for the above conditions, or other urologic issues, please do not hesitate to contact me. The office telephone contact is [phone]. Sincerely, Dr Sunil Henry MD, JACKEL[facility] - Urology Compassionate Specialist Care for the Genitourinary System Coding Level of Care Code Est Pt Level 3 (00718) Complex EM visit Add On G2211 Diagnoses Elevated PSA R97.20 Benign prostatic hyperplasia with lower urinary tract symptoms N40.1 CPT Codes Post Residual Void - PVR CPT Code: 76249-Xmha Void Residual by ultrasound ([id number])
--- OUTSIDE RECORDS SUMMARY | 2025-06-01 09:04 | XMS_ITS | Patient Health Record ---
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 Name Role Phone ANABEL CHACON Primary Care Provider [phone] Allergies No Known Allergies Reason For [...] W/U Status Risk Notes Problem Alcohol dependence (03636934) Alcohol dependence, uncomplicated (F10.20) Active confirmed Problem Essential hypertension (24803182) Essential (primary) hypertension (I10) Active confirmed Problem Lower urinary tract symptoms due to benign prostatic hypertrophy (21297240899987) Benign prostatic hyperplasia with lower urinary tract symptoms (N40.1) Active confirmed Plan Of Treatment Future Test Test Name Order Date COMPREHENSIVE METABOLIC PANEL 06/20/2023 LIPID PANEL 06/20/2023 MICROALBUMIN, URINE 06/20/2023 Insurance Providers Payer Name Payer Address Payer Phone Subscriber Number Group Number Insured Name Patient Relationship to Insured Coverage Start Date Coverage End Date Kerwin [address]EELE [address] [place] [phone] [id number] Cesar Dwyer Self - patient is the insured Medical (General) History Medical History History ICD Code hypertension, benign BPH Eczema
--- OUTSIDE RECORDS SUMMARY | 2025-06-01 09:04 | XMS_ITS | Clinical Summary ---
Author Organization [facility] [address] [place] [address] [place] [phone] Phone Care Team Providers Care Sales Support Rep Name Role Phone Mansi Caceres MD Primary Care Provider [phone] Allergies Active Allergy Reactions Criticality Noted Date [...] 12/11/2015 Chronic hepatitis B virus in fection ([facility] V24, [facility] V28) 04/22/2013 Overview (06/01/2024): Surface antigen positive, [...] Site/Laterality Comments COLONOSCOPY W/ BIOPSIES 08/10/2014 PROCEDURE: [place] COLONOSCOPY W/BIOPSY SINGLE/MULTIPLE; COMMENT: 5 mm rectal [...] 11:00 AM EST Office Visit Adult Medicine [address] [address] Mansi Caceres MD [address] [place] [phone] Health Maintenance Due Date Last Done Comments [...] * Annual BMP Blood Test (01/21/2023) Pathologist [facility] Annual BMP Blood Test Abstracted [facility] Provider HEALTH MAINTENANCE Final Result * Hepatitis C Screening (01/21/2023) Pathologist [facility] Hepatitis C Screening Abstracted Historical Provider HEALTH [...] Most Recently Relevant to Health Maintenance Insurance [facility] Care Teams Sales Support Rep Relationship Specialty Start Date End Date Mansi Caceres MD [address] [place] [phone] PCP - General Internal Medicine 03/12/22
== END 2025-06-01 09:23 | disposition home or self-care (01) ==
LOC: HO.HUSH 08:40
PROVIDERS: PCP Internal Medicine; Visit Provider Urology
DX: R97.20 Elevated prostate specific antigen [PSA] (principal); N40.1 Benign prostatic hyperplasia with lower urinary tract symptoms
CPT/HCPCS: 99213

== ENCOUNTER → 2025-06-01 08:39 | Outpatient (BNVA) | payer OTHER, SELFPAY | PROVIDERS: PCP Internal Medicine; Visit Provider Urology | DX: N40.1 Benign prostatic hyperplasia with lower urinary tract symptoms (principal) | CPT/HCPCS: 51798 ==